=== PATIENT | male | born 1940 | race Caucasian/White ===

== ENCOUNTER 2019-12-09 14:14 | Inpatient (IN) | payer OTHER ==
[~2019-12-09] VITALS: Ht 162.6 cm; Wt 69.7 kg
[2019-12-09 14:29] VITALS: Ht 162.6 cm; Wt 69.7 kg
[2019-12-09 15:14] LABS: BASOPHIL % 0 % (0-2); PLATELET COUNT 193 x10^3mcL (130-400); RED CELL DISTRIBUTION WIDTH 14.7 % (11.5-14.5)
[2019-12-09 15:23] LABS: CALCIUM 8.9 mg/dL (8.5-10.1); CARBON DIOXIDE 22.2 mmol/L (21-32); CHLORIDE SERUM 107 mmol/L (98-107); CREATININE SERUM 1.5 mg/dL (0.7-1.3); GLUCOSE SERUM 105 mg/dL (74-106); POTASSIUM SERUM 4.1 mmol/L (3.5-5.1); SODIUM SERUM 141 mmol/L (136-145)
[2019-12-09 15:28] LABS: ALBUMIN 3.5 g/dL (3.4-5.0); ALKALINE PHOSPHATASE 115 U/L (46-116); ALT/SGPT 31 U/L (16-63); AST/SGOT 22 U/L (15-37); BILIRUBIN TOTAL 0.5 mg/dL (0.20-1.00); TOTAL PROTEIN, SERUM 7.7 g/dL (6.4-8.2)
[2019-12-09] MEDS ORDERED: ASPIR 8181 MG (15:31)
[2019-12-09] MEDS ORDERED: LOTENSIN20 MG (15:31)
[2019-12-09 17:29] LABS: UA SPECIFIC GRAVITY 1.015 (1.005-1.035); microscopic required? YES; urine erythrocyte 3+ (NEGATIVE)
[2019-12-09 19:56] VITALS: BP 120/72
[2019-12-10 05:43] VITALS: BP 117/71
[2019-12-10 06:46] LABS: CALCIUM 8.2 mg/dL (8.5-10.1); CHLORIDE SERUM 110 mmol/L (98-107); CREATININE SERUM 1.3 mg/dL (0.7-1.3); GLUCOSE SERUM 90 mg/dL (74-106); POTASSIUM SERUM 3.9 mmol/L (3.5-5.1); SODIUM SERUM 142 mmol/L (136-145)
[2019-12-10 08:08] LABS: BASOPHIL % 0.4 % (0-2); PLATELET COUNT 153 x10^3mcL (130-400)
[2019-12-10 08:09] LABS: RED CELL DISTRIBUTION WIDTH 15.1 % (11.5-14.5)
[2019-12-10 08:48] VITALS: BP 141/80
[2019-12-10 12:59] VITALS: BP 127/75
[2019-12-10 15:46] LABS: CHOLESTEROL/HDL RATIO 3.4
[2019-12-10 17:13] VITALS: BP 130/65
[2019-12-10 21:17] VITALS: BP 138/80
[2019-12-11 06:01] VITALS: BP 133/76
[2019-12-11 06:16] LABS: BASOPHIL % 0.2 % (0-2); PLATELET COUNT 154 x10^3mcL (130-400)
[2019-12-11 06:28] LABS: CALCIUM 8.5 mg/dL (8.5-10.1); CARBON DIOXIDE 23.9 mmol/L (21-32); CHLORIDE SERUM 105 mmol/L (98-107); CREATININE SERUM 1.4 mg/dL (0.7-1.3); GLUCOSE SERUM 86 mg/dL (74-106); POTASSIUM SERUM 4.1 mmol/L (3.5-5.1); SODIUM SERUM 139 mmol/L (136-145)
[2019-12-11 06:31] LABS: RED CELL DISTRIBUTION WIDTH 14.9 % (11.5-14.5)
[2019-12-11 09:31] VITALS: BP 151/85
[2019-12-11 13:40] VITALS: BP 121/65
[2019-12-11 16:54] VITALS: BP 131/72
[2019-12-11 20:03] VITALS: BP 116/56
[2019-12-11 20:59] VITALS: BP 117/66
[2019-12-12 05:20] VITALS: BP 126/74
[2019-12-12 06:25] LABS: BASOPHIL % 0.3 % (0-2); PLATELET COUNT 161 x10^3mcL (130-400)
[2019-12-12 06:46] LABS: RED CELL DISTRIBUTION WIDTH 15.1 % (11.5-14.5)
[2019-12-12 07:04] LABS: CARBON DIOXIDE 26.5 mmol/L (21-32); CHLORIDE SERUM 106 mmol/L (98-107); CREATININE SERUM 1.2 mg/dL (0.7-1.3); GLUCOSE SERUM 89 mg/dL (74-106); POTASSIUM SERUM 4.9 mmol/L (3.5-5.1); SODIUM SERUM 141 mmol/L (136-145)
[2019-12-12 10:08] VITALS: BP 119/68
[2019-12-12 12:23] VITALS: BP 125/70
[2019-12-12 18:01] VITALS: BP 132/74
[2019-12-12 20:29] VITALS: BP 125/71
[2019-12-13 05:47] VITALS: BP 135/74
[2019-12-13 06:12] LABS: BASOPHIL % 0.3 % (0-2); PLATELET COUNT 157 x10^3mcL (130-400); RED CELL DISTRIBUTION WIDTH 14.9 % (11.5-14.5)
[2019-12-13 07:14] LABS: CALCIUM 9.1 mg/dL (8.5-10.1); CARBON DIOXIDE 26.9 mmol/L (21-32); CHLORIDE SERUM 107 mmol/L (98-107); CREATININE SERUM 1.2 mg/dL (0.7-1.3); GLUCOSE SERUM 87 mg/dL (74-106); SODIUM SERUM 142 mmol/L (136-145)
[2019-12-13 08:43] VITALS: BP 130/76
[2019-12-13 13:24] VITALS: BP 145/84
[2019-12-13 16:05] VITALS: BP 132/85
[2019-12-13 20:01] VITALS: BP 142/75
[2019-12-14 05:53] VITALS: BP 143/79
[2019-12-14 06:27] LABS: BASOPHIL % 0.3 % (0-2); PLATELET COUNT 178 x10^3mcL (130-400); RED CELL DISTRIBUTION WIDTH 14.4 % (11.5-14.5)
[2019-12-14 07:06] LABS: CALCIUM 9.1 mg/dL (8.5-10.1); CARBON DIOXIDE 24.4 mmol/L (21-32); CHLORIDE SERUM 105 mmol/L (98-107); CREATININE SERUM 1.2 mg/dL (0.7-1.3); GLUCOSE SERUM 93 mg/dL (74-106); SODIUM SERUM 140 mmol/L (136-145)
[2019-12-14 08:35] VITALS: BP 143/63
[2019-12-14 10:22] VITALS: BP 143/63
== END 2019-12-14 11:55 | disposition home or self-care (01) | DRG 871 ==
LOC: ED 14:14 → DU 17:10
PROVIDERS: Emergency Medicine; Internal Medicine Cardiovascular Disease; ADMIT Internal Medicine
DX: A41.9 Sepsis, unspecified organism (principal); I21.4 Non-ST elevation (NSTEMI) myocardial infarction; N39.0 Urinary tract infection, site not specified; I42.9 Cardiomyopathy, unspecified; J11.1 Influenza due to unidentified influenza virus with other respiratory manifestations; I25.10 Atherosclerotic heart disease of native coronary artery without angina pectoris; R65.20 Severe sepsis without septic shock; I10 Essential (primary) hypertension; R31.9 Hematuria, unspecified; Z93.2 Ileostomy status; Z79.82 Long term (current) use of aspirin; Z68.25 Body mass index [BMI] 25.0-25.9, adult; Z85.51 Personal history of malignant neoplasm of bladder; Z90.49 Acquired absence of other specified parts of digestive tract; Z79.899 Other long term (current) drug therapy
CPT/HCPCS: 83880; 87804; 90732; A9500; G0378; J1650; J2060; J2543; J2785; J7030